=== PATIENT | male | born 1950 | race Caucasian/White ===

== ENCOUNTER 2016-07-06 17:31 | Inpatient (IN) | payer MEDICARE ==
[2016-07-06] VITALS (157 sets, daily range): BP systolic 122; BP diastolic 85; PULSE 101; TEMP 98.3; O2SAT 78–100
[~2016-07-06] VITALS: Ht 177.8 cm; Wt 101.3 kg
[2016-07-06 18:13] LABS: HEMATOCRIT 38.6 % (42.0-52.0); HEMOGLOBIN 12.6 g/dl (13.5-18.0); MEAN CELL VOLUME 97 fl (80.0-100.0); MEAN CORPUSCULAR HEMOGLOBIN 32 pg (27.0-31.0); MEAN CORPUSCULAR HGB CONC 33 g/dl (33.0-37.0); MEAN PLATELET VOLUME 10.1 fl (7.4-10.4); PLATELET COUNT 239 K/mm3 (130-400); RED BLOOD COUNT 3.99 M/mm3 (4.20-5.60); REDCELL DISTRIBUTION WIDTH-CV 13.3 % (11.5-14.5)
[2016-07-06] MEDS ORDERED: K-DUR20 MEQ PO (18:18)
[2016-07-06] MEDS ORDERED: PRINIVIL20 MG PO (18:19)
[2016-07-06] MEDS ORDERED: CELEXA 20MG20 MG/TAB PO (18:19)
[2016-07-06] MEDS ORDERED: HCTZ 25MG TAB25 MG PO (18:19)
[2016-07-06] MEDS ORDERED: BUSPAR5 MG PO (18:20)
[2016-07-06] MEDS ORDERED: MULTIPLE VITAMI1 CAP PO (18:20)
[2016-07-06] MEDS ORDERED: ZYPREXA 5MG5 MG PO (18:21)
[2016-07-06] MEDS ORDERED: FLOMAX 0.40.4 MG/CAP PO (18:21)
[2016-07-06] MEDS ORDERED: RISPERDAL 0.5M0.5 MG PO (18:22)
[2016-07-06 18:27] LABS: ADD PATHOLOGY DIFF REVIEW NO; WHITE BLOOD COUNT 21.2 K/mm3 (4.8-10.8)
[2016-07-06 18:28] LABS: ADJUSTED CALCIUM 9.4 mg/dL (8.4-10.2); ALBUMIN 3.9 gm/dL (3.5-5.0); BILIRUBIN,TOTAL 1.3 mg/dL (0.0-1.0); CALCIUM 9.3 mg/dL (8.4-10.2); CREATININE, serum 3.43 mg/dL (0.66-1.25); POTASSIUM 4.8 mmol/L (3.4-5.0)
[2016-07-06 18:53] LABS: BAND 8 % (0-10); NEUTROPHILS 87 % (42.0-75.2); TOTAL CELLS COUNTED 100
[2016-07-06 18:57] LABS: PH 5 (5-8); SQUAMOUS EPITHELIAL None Seen /hpf; URINE APPEARANCE Hazy; URINE BACTERIA Rare /hpf; URINE BILIRUBIN Negative (NEGATIVE); URINE BLOOD 2+ (NEGATIVE); URINE COLOR Yellow; URINE GLUCOSE Negative (NEGATIVE); URINE KETONE Negative (NEGATIVE); URINE UROBILINOGEN Negative (NEGATIVE); URINE WBC 0-2 /hpf
[2016-07-06 19:15] LABS: TROPONIN-I 1.15 ng/mL (0.000-0.034)
[2016-07-06 19:23] LABS: INFLUENZA B NEGATIVE
[2016-07-06 20:51] LABS: ARTERIAL BLD GAS O2 SATURATION 94.3 % (92-100); ARTERIAL BLOOD GAS BASE EXCESS -5.4 (-2-2); ARTERIAL BLOOD GAS HCO3 17.3 meq/L (22-26); ARTERIAL BLOOD GAS PO2 75.5 mmHg (80-100); ARTERIAL BLOOD GAS pH 7.43 (7.35-7.45)
[2016-07-06 20:52] LABS: ALLEN TEST NO; ARTERIAL BLOOD GAS PHT 7.43 C (7.35-7.45); ARTERIAL BLOOD GAS PO2T 75.5 (80-100); ATS? YES
[2016-07-06 23:32] LABS: INR 1.5 (0.8-3.0); PROTHROMBIN TIME 16.5 SECONDS (9.7-12.8)
[2016-07-06 23:34] LABS: PARTIAL THROMBOPLASTIN TIME 26.4 SECONDS (26.0-37.0)
[2016-07-07] VITALS (1016 sets, daily range): BP systolic 98–140; BP diastolic 42–97; PULSE 95–111; TEMP 97.3–99.8; O2SAT 69–100
[2016-07-07 00:06] LABS: VENOUS BLOOD GAS BE -2.9 (-4-4); VENOUS BLOOD GAS SAO2 40.8 % (60-80)
[2016-07-07 00:07] LABS: VENOUS BLOOD GAS SITE CENTRAL LINE
[2016-07-07 00:08] LABS: ARTERIAL BLD GAS O2 SATURATION 96.1 % (92-100); ARTERIAL BLD GAS TCO2 CT 17.3; ARTERIAL BLOOD GAS BASE EXCESS -5.4 (-2-2); ARTERIAL BLOOD GAS HCO3 16.5 meq/L (22-26); ARTERIAL BLOOD GAS PHT 7.47 C (7.35-7.45); ARTERIAL BLOOD GAS PO2 93.8 mmHg (80-100); ARTERIAL BLOOD GAS PO2T 93.8 (80-100); ARTERIAL BLOOD GAS pH 7.47 (7.35-7.45); OXYHEMOGLOBIN 95.3 %
[2016-07-07 00:10] LABS: ALLEN TEST NO; ATS? NO
[2016-07-07 01:48] LABS: VENOUS BLOOD GAS BE -6.1 (-4-4); VENOUS BLOOD GAS SAO2 36.4 % (60-80); VENOUS BLOOD GAS SITE CENTRAL LINE
[2016-07-07 02:43] LABS: ARTERIAL BLD GAS TCO2 CT 16.2; ARTERIAL BLOOD GAS BASE EXCESS -6.6 (-2-2); ARTERIAL BLOOD GAS HCO3 15.5 meq/L (22-26); ARTERIAL BLOOD GAS PHT 7.45 C (7.35-7.45); ARTERIAL BLOOD GAS pH 7.45 (7.35-7.45); OXYHEMOGLOBIN 93.3 %
[2016-07-07 02:44] LABS: ATS? NO
[2016-07-07 05:37] LABS: VENOUS BLOOD GAS BE -3.6 (-4-4)
[2016-07-07 05:38] LABS: VENOUS BLOOD GAS SITE CENTRAL LINE
[2016-07-07 06:12] LABS: INR 1.7 (0.8-3.0); PROTHROMBIN TIME 19.1 SECONDS (9.7-12.8)
[2016-07-07 06:27] LABS: ADJUSTED CALCIUM 8.8 mg/dL (8.4-10.2); ALBUMIN 3.1 gm/dL (3.5-5.0); BILIRUBIN,TOTAL 1.1 mg/dL (0.0-1.0); CALCIUM 8.1 mg/dL (8.4-10.2); CREATININE, serum 2.06 mg/dL (0.66-1.25); POTASSIUM 4.2 mmol/L (3.4-5.0); TOTAL PROTEIN 6.8 gm/dL (6.4-8.2)
[2016-07-07 06:42] LABS: TROPONIN-I 0.617 ng/mL (0.000-0.034)
[2016-07-07 08:58] LABS: VENOUS BLOOD GAS SAO2 50.6 % (60-80)
[2016-07-07 09:00] LABS: VENOUS BLOOD GAS SITE CENTRAL LINE
[2016-07-07 11:58] LABS: ADD PATHOLOGY DIFF REVIEW NO
[2016-07-07 12:01] LABS: MEAN CELL VOLUME 96 fl (80.0-100.0); MEAN CORPUSCULAR HGB CONC 33 g/dl (33.0-37.0); MEAN PLATELET VOLUME 9.9 fl (7.4-10.4); PLATELET COUNT 218 K/mm3 (130-400); RED BLOOD COUNT 3.64 M/mm3 (4.20-5.60); REDCELL DISTRIBUTION WIDTH-CV 13.2 % (11.5-14.5)
[2016-07-07 12:23] LABS: HEMATOCRIT 34.9 % (42.0-52.0); HEMOGLOBIN 11.6 g/dl (13.5-18.0); MEAN CORPUSCULAR HEMOGLOBIN 32 pg (27.0-31.0); WHITE BLOOD COUNT 20.1 K/mm3 (4.8-10.8)
[2016-07-07 13:54] LABS: BAND 8 % (0-10); NEUTROPHILS 81 % (42.0-75.2); TOTAL CELLS COUNTED 100
[2016-07-07 18:41] LABS: VENOUS BLOOD GAS BE -5.4 (-4-4); VENOUS BLOOD GAS SAO2 28.3 % (60-80)
[2016-07-07 18:44] LABS: VENOUS BLOOD GAS SITE CENTRAL LINE
[2016-07-07 23:36] LABS: VENOUS BLOOD GAS BE -2.1 (-4-4); VENOUS BLOOD GAS SAO2 47.2 % (60-80)
[2016-07-07 23:38] LABS: VENOUS BLOOD GAS SITE CENTRAL LINE
[2016-07-08] VITALS (1110 sets, daily range): BP systolic 109–151; BP diastolic 41–99; PULSE 109–116; TEMP 97.7–99.9; O2SAT 71–100
[2016-07-08 04:40] LABS: ADD PATHOLOGY DIFF REVIEW NO
[2016-07-08 04:43] LABS: MEAN CELL VOLUME 97 fl (80.0-100.0); MEAN CORPUSCULAR HGB CONC 33 g/dl (33.0-37.0); MEAN PLATELET VOLUME 9.9 fl (7.4-10.4); PLATELET COUNT 230 K/mm3 (130-400); RED BLOOD COUNT 3.27 M/mm3 (4.20-5.60); REDCELL DISTRIBUTION WIDTH-CV 13.2 % (11.5-14.5); WHITE BLOOD COUNT 18.6 K/mm3 (4.8-10.8)
[2016-07-08 04:48] LABS: HEMATOCRIT 31.8 % (42.0-52.0); HEMOGLOBIN 10.5 g/dl (13.5-18.0); MEAN CORPUSCULAR HEMOGLOBIN 32 pg (27.0-31.0)
[2016-07-08 04:51] LABS: ALBUMIN 2.8 gm/dL (3.5-5.0); BILIRUBIN,TOTAL 0.9 mg/dL (0.0-1.0); CREATININE, serum 1.33 mg/dL (0.66-1.25); INR 1.7 (0.8-3.0); POTASSIUM 3.3 mmol/L (3.4-5.0); PROTHROMBIN TIME 19.2 SECONDS (9.7-12.8); TOTAL PROTEIN 6.4 gm/dL (6.4-8.2)
[2016-07-08 05:31] LABS: BAND 16 % (0-10); METAMYELOCYTE 1 % (0-0); NEUTROPHILS 70 % (42.0-75.2); PLATELET ESTIMATE NORMAL (NORMAL); TOTAL CELLS COUNTED 100
[2016-07-09] VITALS (823 sets, daily range): BP systolic 109–179; BP diastolic 69–111; PULSE 72–98; TEMP 97–100.8; O2SAT 65–100
[2016-07-09 05:12] LABS: BASO % 0.1 % (0.0-2.0); GRAN % 83.9 % (42.2-75.2); LYMPH # 1.1 (1.2-3.4); LYMPH % 7.2 % (20.0-51.0); MEAN CELL VOLUME 97 fl (80.0-100.0); MEAN CORPUSCULAR HGB CONC 33 g/dl (33.0-37.0); MEAN PLATELET VOLUME 9.9 fl (7.4-10.4); MONO # 1.1 (0.1-0.6); MONO % 7.4 % (1.7-9.3); PLATELET COUNT 219 K/mm3 (130-400); RED BLOOD COUNT 2.91 M/mm3 (4.20-5.60); REDCELL DISTRIBUTION WIDTH-CV 13.2 % (11.5-14.5); WHITE BLOOD COUNT 15.5 K/mm3 (4.8-10.8)
[2016-07-09 05:19] LABS: HEMATOCRIT 28.3 % (42.0-52.0); HEMOGLOBIN 9.3 g/dl (13.5-18.0); MEAN CORPUSCULAR HEMOGLOBIN 32 pg (27.0-31.0)
[2016-07-09 05:25] LABS: ADJUSTED CALCIUM 9.1 mg/dL (8.4-10.2); ALBUMIN 2.5 gm/dL (3.5-5.0); BILIRUBIN,TOTAL 0.9 mg/dL (0.0-1.0); CALCIUM 7.9 mg/dL (8.4-10.2); CREATININE, serum 1.12 mg/dL (0.66-1.25); MAGNESIUM 2.4 mg/dL (1.6-2.3); PHOSPHOROUS 2.7 mg/dL (2.5-4.5); TOTAL PROTEIN 5.8 gm/dL (6.4-8.2)
[2016-07-09 05:46] LABS: ALLEN TEST YES; ALLENS TEST RESULT PASS; ARTERIAL BLD GAS O2 SATURATION 93.4 % (92-100); ARTERIAL BLD GAS TCO2 CT 24.8; ARTERIAL BLOOD GAS HCO3 23.8 meq/L (22-26); ARTERIAL BLOOD GAS PO2 73.4 mmHg (80-100); ATS? YES
[2016-07-09 05:51] LABS: PROTHROMBIN TIME 22.2 SECONDS (9.7-12.8)
[2016-07-09 06:20] LABS: POTASSIUM 2.9 mmol/L (3.4-5.0)
[2016-07-10] VITALS (551 sets, daily range): BP systolic 138–181; BP diastolic 83–151; PULSE 77–100; TEMP 97.3–99; O2SAT 75–100
[2016-07-10 06:03] LABS: ADD PATHOLOGY DIFF REVIEW NO
[2016-07-10 06:11] LABS: MEAN CELL VOLUME 98 fl (80.0-100.0); MEAN CORPUSCULAR HGB CONC 32 g/dl (33.0-37.0); PLATELET COUNT 267 K/mm3 (130-400); REDCELL DISTRIBUTION WIDTH-CV 13.5 % (11.5-14.5); WHITE BLOOD COUNT 17.2 K/mm3 (4.8-10.8)
[2016-07-10 06:19] LABS: HEMATOCRIT 33.3 % (42.0-52.0); HEMOGLOBIN 10.6 g/dl (13.5-18.0); MEAN CORPUSCULAR HEMOGLOBIN 31 pg (27.0-31.0)
[2016-07-10 06:27] LABS: INR 1.7 (0.8-3.0); PROTHROMBIN TIME 19.1 SECONDS (9.7-12.8)
[2016-07-10 06:30] LABS: ADJUSTED CALCIUM 9.2 mg/dL (8.4-10.2); ALBUMIN 2.8 gm/dL (3.5-5.0); BILIRUBIN,TOTAL 0.9 mg/dL (0.0-1.0); CALCIUM 8.2 mg/dL (8.4-10.2); CREATININE, serum 0.91 mg/dL (0.66-1.25); MAGNESIUM 2.3 mg/dL (1.6-2.3); PHOSPHOROUS 1.8 mg/dL (2.5-4.5); POTASSIUM 3.4 mmol/L (3.4-5.0); TOTAL PROTEIN 6.5 gm/dL (6.4-8.2)
[2016-07-10 07:24] LABS: BAND 2 % (0-10); NEUTROPHILS 77 % (42.0-75.2); TOTAL CELLS COUNTED 100
[2016-07-11] VITALS (19 sets, daily range): BP systolic 147–158; BP diastolic 65–92; PULSE 72–91; TEMP 98.2–100.3
[2016-07-12 00:15] VITALS: BP 153/88; PULSE 95; TEMP 100.1
[2016-07-12 03:00] VITALS: BP 135/82; PULSE 85; TEMP 99.2
[2016-07-12 08:16] VITALS: BP 137/79; PULSE 80; TEMP 99.2
[2016-07-12] MEDS ORDERED: CLEOCIN HCL300 MG PO (11:19)
[2016-07-12] MEDS ORDERED: RISPERDAL 0.5M0.5 MG PO ×2 (11:21)
[2016-07-12] MEDS ORDERED: HALDOL 5MG/ML5 MG/ML IJ (11:23)
[2016-07-12] MEDS ORDERED: HALDOL 5MG T5 MG/TAB PO (11:24)
[2016-07-12] MEDS ORDERED: ZOLOFT 25MG25 MG PO (11:26)
[2016-07-12] MEDS ORDERED: TYLENOL 325MG325 MG PO (11:26)
[2016-07-12] MEDS ORDERED: DESYREL 50MG50 MG PO ×2 (11:26)
[2016-07-12] MEDS ORDERED: IPRATROPIUM BROM3 M1 IH ×2 (11:27)
[2016-07-12] MEDS ORDERED: ASPIRIN 32325 MG/TAB PO (11:27)
[2016-07-12 11:35] VITALS: BP 135/68; PULSE 78; TEMP 97.6
[2016-07-12 11:38] VITALS: BP 135/68; PULSE 78; TEMP 97.6
== END 2016-07-12 16:01 | DRG 871 ==
LOC: COL.ER 17:31 → ICU 20:09 → COL.ER 20:09 → ICU 07-08 19:13 → MEDICAL 07-10 17:35
PROVIDERS: Emergency Medicine; Internal Medicine; Internal Medicine Pulmonary Disease; Nurse Practitioner Family
PROC: 02HV33Z Insertion of Infusion Device into Superior Vena Cava, Percutaneous Approach (ICD-10-PCS; principal; 2016-07-09)
DX: A41.9 Sepsis, unspecified organism (principal); J96.01 Acute respiratory failure with hypoxia; I21.4 Non-ST elevation (NSTEMI) myocardial infarction; J69.0 Pneumonitis due to inhalation of food and vomit; F02.81 Dementia in other diseases classified elsewhere, unspecified severity, with behavioral disturbance; N17.9 Acute kidney failure, unspecified; E87.0 Hyperosmolality and hypernatremia; F05 Delirium due to known physiological condition; Z66 Do not resuscitate; G31.83 Neurocognitive disorder with Lewy bodies; Z87.891 Personal history of nicotine dependence; I10 Essential (primary) hypertension; F43.21 Adjustment disorder with depressed mood; N13.9 Obstructive and reflux uropathy, unspecified; D64.9 Anemia, unspecified; E87.8 Other disorders of electrolyte and fluid balance, not elsewhere classified
CPT/HCPCS: 90791-AI; 99223-AI; 99232-AI; 99233-AI; 99239; J0692; J1250; J1630; J1644; J1650; J1720; J1956; J2543; J3370; J3480; J7030; J7050; J7070

== ENCOUNTER → 2016-07-06 | Outpatient (CLI) | payer MEDICARE ==
[~2016-07-06] MED LIST: ASPIRIN 32325 MG/TAB PO; BUSPAR5 MG PO; CELEXA 20MG20 MG/TAB PO; CLEOCIN HCL300 MG PO; DESYREL 50MG50 MG PO; FLOMAX 0.40.4 MG/CAP PO; HALDOL 5MG T5 MG/TAB PO; HALDOL 5MG/ML5 MG/ML IJ; HCTZ 25MG TAB25 MG PO; IPRATROPIUM BROM3 M1 IH; K-DUR20 MEQ PO; MULTIPLE VITAMI1 CAP PO; PRINIVIL20 MG PO; RISPERDAL 0.5M0.5 MG PO; TYLENOL 325MG325 MG PO; ZOLOFT 25MG25 MG PO; ZOLOFT 50MG50 MG PO; ZYPREXA 5MG5 MG PO
[2016-07-06 13:06] LABS: CALCIUM 9.2 mg/dL (8.4-10.2); CREATININE, serum 2.57 mg/dL (0.66-1.25); POTASSIUM 4.3 mmol/L (3.4-5.0)
== END ==
LOC: ZCOL.LAB 11:28
PROVIDERS: Internal Medicine
DX: F10.27 Alcohol dependence with alcohol-induced persisting dementia (principal)

== ENCOUNTER 2016-07-17 14:16 | Emergency (ER) | payer MEDICARE ==
[~2016-07-17] VITALS: Ht 177.8 cm; Wt 90.9 kg
[~2016-07-17 14:16] MED LIST changes: -ZOLOFT 50MG50 MG PO
[2016-07-17 14:19] VITALS: TEMP 98.1
[2016-07-17 15:09] LABS: MEAN CELL VOLUME 97 fl (80.0-100.0); MEAN CORPUSCULAR HGB CONC 32 g/dl (33.0-37.0); MEAN PLATELET VOLUME 9.2 fl (7.4-10.4); PLATELET COUNT 521 K/mm3 (130-400); RED BLOOD COUNT 3.43 M/mm3 (4.20-5.60); REDCELL DISTRIBUTION WIDTH-CV 13.5 % (11.5-14.5); WHITE BLOOD COUNT 16.7 K/mm3 (4.8-10.8)
[2016-07-17] MEDS ORDERED: RISPERDAL 0.5M0.5 MG PO (15:09)
[2016-07-17] MEDS ORDERED: ZOLOFT 50MG50 MG PO (15:11)
[2016-07-17 15:14] LABS: PH 6 (5-8); SQUAMOUS EPITHELIAL None Seen /hpf; URINE APPEARANCE Clear; URINE BACTERIA Rare /hpf; URINE BILIRUBIN Negative (NEGATIVE); URINE BLOOD Negative (NEGATIVE); URINE COLOR Yellow; URINE GLUCOSE Negative (NEGATIVE); URINE KETONE Negative (NEGATIVE); URINE RBC 0-2 /hpf; URINE UROBILINOGEN Negative (NEGATIVE); URINE WBC 0-2 /hpf
[2016-07-17 15:14] LABS: ADJUSTED CALCIUM 9.3 mg/dL (8.4-10.2); ALBUMIN 2.8 gm/dL (3.5-5.0); BILIRUBIN,TOTAL 0.9 mg/dL (0.0-1.0); CALCIUM 8.3 mg/dL (8.4-10.2); CREATININE, serum 0.77 mg/dL (0.66-1.25); HEMATOCRIT 33.4 % (42.0-52.0); HEMOGLOBIN 10.6 g/dl (13.5-18.0); MEAN CORPUSCULAR HEMOGLOBIN 31 pg (27.0-31.0); POTASSIUM 3.1 mmol/L (3.4-5.0); TOTAL PROTEIN 7.2 gm/dL (6.4-8.2)
[2016-07-17 15:15] LABS: ADD PATHOLOGY DIFF REVIEW NO
[2016-07-17 15:42] LABS: BAND 6 % (0-10); NEUTROPHILS 81 % (42.0-75.2); TOTAL CELLS COUNTED 100
[2016-07-17 15:43] LABS: PLATELET ESTIMATE INCREASED (NORMAL)
[2016-07-17 16:57] VITALS: BP 148/82; PULSE 80
== END 2016-07-17 17:38 | disposition home or self-care (01) ==
LOC: COL.ER 14:16
PROVIDERS: Family Medicine
DX: R33.9 Retention of urine, unspecified (principal); F03.90 Unspecified dementia, unspecified severity, without behavioral disturbance, psychotic disturbance, mood disturbance, and anxiety
CPT/HCPCS: A4315

== ENCOUNTER → 2016-07-19 | Outpatient (CLI) | payer MEDICARE ==
[~2016-07-19] MED LIST changes: +ZOLOFT 50MG50 MG PO
[2016-07-19 09:55] LABS: CALCIUM 8.4 mg/dL (8.4-10.2); CREATININE, serum 0.58 mg/dL (0.66-1.25); POTASSIUM 3.6 mmol/L (3.4-5.0)
== END ==
LOC: ZLAB.STJ 09:29
PROVIDERS: Internal Medicine
DX: Z01.89 Encounter for other specified special examinations (principal)

== ENCOUNTER → 2016-07-24 | Outpatient (REF) ==
[2016-07-24 20:09] LABS: PH 7 (5-8); SQUAMOUS EPITHELIAL None Seen /hpf; URINE APPEARANCE Cloudy; URINE BACTERIA Rare /hpf; URINE BILIRUBIN Negative (NEGATIVE); URINE BLOOD 3+ (NEGATIVE); URINE COLOR Amber; URINE GLUCOSE Negative (NEGATIVE); URINE KETONE Negative (NEGATIVE); URINE RBC >50 /hpf; URINE UROBILINOGEN Negative (NEGATIVE)
== END ==
LOC: ZLAB.STJ 18:12
DX: M51.36 Other intervertebral disc degeneration, lumbar region (principal)